=== PATIENT | male | born 1940 | race Caucasian/White ===

== ENCOUNTER → 2017-09-17 15:37 | Outpatient (POV) | payer MEDICARE, SELFPAY | PROVIDERS: PCP Family Medicine | DX: Z00.00 Encounter for general adult medical examination without abnormal findings (principal) ==

== ENCOUNTER → 2017-10-01 13:54 | Outpatient (POV) | payer MEDICARE, SELFPAY | PROVIDERS: PCP Family Medicine | DX: Z00.00 Encounter for general adult medical examination without abnormal findings (principal) ==

== ENCOUNTER → 2017-11-12 14:53 | Outpatient (POV) | payer MEDICARE, SELFPAY | DX: Z00.00 Encounter for general adult medical examination without abnormal findings (principal) ==

== ENCOUNTER → 2018-07-15 13:06 | Outpatient (POV) | payer MEDICARE, SELFPAY | DX: Z00.00 Encounter for general adult medical examination without abnormal findings (principal) ==

== ENCOUNTER → 2018-11-25 13:09 | Outpatient (POV) | payer MEDICARE, SELFPAY | DX: Z00.00 Encounter for general adult medical examination without abnormal findings (principal) ==

== ENCOUNTER → 2019-03-24 13:25 | Outpatient (POV) | payer MEDICARE, SELFPAY | DX: Z00.00 Encounter for general adult medical examination without abnormal findings (principal) ==

== ENCOUNTER → 2019-07-28 13:56 | Outpatient (POV) | payer MEDICARE, SELFPAY | DX: Z00.00 Encounter for general adult medical examination without abnormal findings (principal) ==

== ENCOUNTER → 2020-02-02 14:00 | Outpatient (POV) | payer MEDICARE, SELFPAY | PROVIDERS: PCP Family Medicine | DX: Z00.00 Encounter for general adult medical examination without abnormal findings (principal) ==

== ENCOUNTER → 2020-06-14 13:19 | Outpatient (POV) | payer MEDICARE, SELFPAY | DX: Z00.00 Encounter for general adult medical examination without abnormal findings (principal) ==

== ENCOUNTER → 2020-07-20 09:02 | Outpatient (CLI) | payer MEDICARE, SELFPAY ==
--- NOTE | 2020-07-20 09:12 | CT_ITS ---
PROCEDURE: CT CHEST W CON CLINCAL INDICATION: Lung lesion > seen on abd pelvis done at [facility] contacting dr for report COMPARISON: No exams were available for comparison TECHNIQUE: IV Contrast: 75ml Isovue 370 Axial images obtained with sagittal and coronal reformats. All CT scans at the facility use one or more dose reduction, viz: automated exposure control, ma/kV adjustment per patient size (including targeted exams where dose is matched to indication, i.e. head), or iterative reconstruction technique. FINDINGS: No mediastinal or hilar adenopathy. No mediastinal or mass. No evidence of aortic aneurysm dissection, or pulmonary embolus. Coronary artery calcifications present. 5 mm fissural nodule is present in the right minor fissure. 4 mm noncalcified nodules present in the right lower lobe anteriorly. There is a small bleb in the right lower lobe at 11 mm. There is a 3 mm noncalcified nodule within the lingula. An 8 mm noncalcified nodules present in the left lower lobe and a 4 mm noncalcified nodules present in the left lower lobe. These are both best seen on series 3, image 72. No effusions or infiltrates. There is a small enhancing lesion in the right hepatic lobe posteriorly measuring 8-9 mm segment 6 nonspecific. Please correlate with recent abdomen CT. 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 Differential would include inflammatory/infectious or neoplastic nodules. Three month follow-up suggested Dictated by: Byron Mathis MD 07/21/2020 10:22 Byron Mathis MD in [facility] 07/21/2020 10:22
== END ==
PROVIDERS: PCP Family Medicine; Visit Provider Family Medicine
DX: R91.1 Solitary pulmonary nodule (principal)
CPT/HCPCS: 71260; Q9967

== ENCOUNTER → 2020-08-02 13:42 | Outpatient (POV) | payer MEDICARE, SELFPAY | DX: Z00.00 Encounter for general adult medical examination without abnormal findings (principal) ==

== ENCOUNTER → 2020-11-24 10:04 | Outpatient (CLI) | payer MEDICARE, SELFPAY ==
[2020-11-24 10:38] LABS: Blood Urea Nitrogen 14 mg/dl (9-20); Estimated Glomerular Filt Rate 72 ml/min (>60); GFR (African American) 87 ML/MIN (>60)
--- NOTE | 2020-11-24 13:42 | CT_ITS ---
PROCEDURE INFORMATION: Exam: CT Chest Without and With Contrast; Diagnostic Exam date and time: 11/24/2020 1:42 PM Age: 80 years old Clinical indication: Screening exam; Other screening; Additional info: Lung nodule TECHNIQUE: Imaging protocol: Diagnostic computed tomography of the chest without and with contrast. Radiation optimization: All CT scans at this facility use at least one of these dose optimization techniques: automated exposure control; mA and/or kV adjustment per patient size (includes targeted exams where dose is matched to clinical indication); or iterative reconstruction. Contrast material: ISOVUE; Contrast volume: 75 ml; Contrast route: IV; COMPARISON: CT CHEST W CON 07/20/2020 9:44 AM FINDINGS: Lungs: Stable 8.3 mm nodule in the lateral left lower lobe.. 4.2 mm nodule in the left lower lobe has increased in size to 5.2 mm. Series 3, image 72. Again noted is enhancing lesion in the medial aspect of the right lower lobe. The blush measures 8 mm on today's study. Previously it measured 8.1 mm.. Pleural spaces: Unremarkable. No pneumothorax. No pleural effusion. Heart: Unremarkable. No cardiomegaly. No pericardial effusion. Aorta: Unremarkable. No aortic aneurysm. Lymph nodes: Unremarkable. No enlarged lymph nodes. Bones/joints: Unremarkable. No acute fracture. Soft tissues: Unremarkable. IMPRESSION: 1. Stable 8.3 mm nodule in the lateral left lower lobe.. For both low risk and high risk patients, consider CT Chest at 3 months, PET/CT, or biopsy. (Reference: Esa) References: Bhaveshhojannette H, et al. Guidelines for Management of Incidental Pulmonary Nodules Detected on CT Images: From the Fleischner Society 2017. Radiology. 2017;284(1):228-243. 2. 4.2 mm nodule in the left lower lobe has increased in size to 5.2 mm. Series 3, image 72. For patients at low risk (minimal or absent history of smoking and of other known risk factors), no routine follow-up is indicated. For patients at high risk (history of smoking or of other known risk factors), consider optional CT Chest at 12 months. (Reference: Bhaveshhojannette) References: Bhaveshhojannette H, et al. Guidelines for Management of Incidental Pulmonary Nodules Detected on CT Images: From the Fleischner Society 2017. Radiology. 2017;284(1):228-243. 3. Again noted is enhancing lesion in the medial aspect of the right lower lobe. The blush measures 8 mm on today's study. Previously it measured 8.1 mm.. This may represent hemangioma. Recommend liver MRI
== END ==
PROVIDERS: PCP Family Medicine; Visit Provider Thoracic Surgery (Cardiothoracic Vascular Surgery)
DX: R91.8 Other nonspecific abnormal finding of lung field (principal)
CPT/HCPCS: 36415; 71270; 82565; 84520; Q9967

== ENCOUNTER → 2020-11-29 12:57 | Outpatient (POV) | payer MEDICARE, SELFPAY | DX: Z00.00 Encounter for general adult medical examination without abnormal findings (principal) ==

== ENCOUNTER → 2021-06-11 12:29 | Outpatient (CLI) | payer MEDICARE, SELFPAY ==
[2021-06-11 13:10] LABS: Blood Urea Nitrogen 17 mg/dl (9-20); Estimated Glomerular Filt Rate 72 ml/min (>60); GFR (African American) 87 ML/MIN (>60)
--- NOTE | 2021-06-11 13:22 | CT_ITS ---
PROCEDURE INFORMATION: Exam: CT Chest Without and With Contrast; Diagnostic Exam date and time: 06/11/2021 1:22 PM Age: 80 years old Clinical indication: Mass, lump, or swelling in the chest; Additional info: Lung nodules f/u TECHNIQUE: Imaging protocol: Diagnostic computed tomography of the chest without and with contrast. Radiation optimization: All CT scans at this facility use at least one of these dose optimization techniques: automated exposure control; mA and/or kV adjustment per patient size (includes targeted exams where dose is matched to clinical indication); or iterative reconstruction. Contrast material: ISOVUE; Contrast volume: 75 ml; Contrast route: IV; COMPARISON: CT CHEST WO/W CON 11/24/2020 2:39 PM FINDINGS: Thyroid: Thyroid appears unremarkable. Trachea: Patent. Bronchial tree: Patent. Lungs: No acute interstitial or airspace disease. Stable scattered benign lung cysts are appreciated. Pulmonary nodules as follows: -Stable 7 mm perifissural nodule (abutting/within the right minor fissure on image 44 series 5 and image 25 series 605). This is compatible with a benign intrapulmonary lymph node and no follow-up is warranted. -Stable 6 mm nodule in the right lower lobe (image 58 series 5). Please note that this nodule was only partially visualized in the prior exam and was slightly obscured by motion. -Stable 4 mm nodule in the right lower lobe (image 37 series 5). -Increase in size of a left upper lobe nodule (image 53 series 5), now measuring 5 mm (previously 3.5 mm). -Stable 9 mm nodule in the left lower lobe (image 68 series 5). -Stable 5 mm nodule in the left lower lobe (image 68 series 5). -Increase in size of a left lower lobe nodule (image 61 series 5) now measuring 5.6 mm (previously 4.8 mm). Pleural spaces: Unremarkable. No pneumothorax. No pleural effusion. Heart: There is mild atherosclerotic calcification of the coronary arteries. Heart is of normal size and morphology. No pericardial thickening or effusion. Esophagus: Courses normally through the posterior mediastinum. Pulmonary arteries: Normal in course and caliber. Aorta: The aorta demonstrates mild atherosclerotic calcification. No acute pathology in the aorta. Lymph nodes: No concerning mediastinal, hilar, or axillary adenopathy by CT size criteria. Liver: Stable 9 mm hyperenhancing lesion in the right hepatic lobe (image 86 series 5). Bones/joints: No acute skeletal pathology. Moderate multilevel degenerative changes of the spine, as manifested by multilevel anterior osteophytes and multilevel decrease in intervertebral disc space. Soft tissues: No acute body wall soft tissue findings. Other findings: The visualized intra-abdominal structures demonstrate no acute findings. IMPRESSION: 1. INCREASE IN SIZE OF 2 PULMONARY NODULES, 1 IN THE LEFT UPPER LOBE AND THE OTHER IN THE LEFT LOWER LOBE. REMAINDER OF THE PULMONARY NODULES ARE ESSENTIALLY STABLE. PLEASE REVIEW ABOVE FOR DETAILS ON EACH NODULE. - For patients at low risk (minimal or absent history of smoking and of other known risk factors), recommend CT Chest at 3-6 months, then consider CT Chest at 18-24 months. For patients at high risk (history of smoking or of other known risk factors), recommend CT Chest at 3-6 months, then CT Chest at 18-24 months. (Reference: Esa) 2. STABLE 9 MM LESION IN THE RIGHT HEPATIC LOBE, FAVORING A FLASH FILLING HEMANGIOMA. CONSIDER CORRELATION WITH ULTRASOUND OR DEDICATED LIVER PROTOCOL CT OR MRI IF CLINICALLY WARRANTED. COMMENTS: For future follow-up of pulmonary nodules, if there is no other clinica
== END ==
PROVIDERS: PCP Family Medicine; Visit Provider Thoracic Surgery (Cardiothoracic Vascular Surgery)
DX: R91.8 Other nonspecific abnormal finding of lung field (principal)
CPT/HCPCS: 36415; 71270; 82565; 84520; Q9967

== ENCOUNTER → 2021-11-29 09:21 | Outpatient (CLI) | payer MEDICARE, SELFPAY ==
--- NOTE | 2021-11-29 09:27 | CT_ITS ---
FINAL REPORT TECHNIQUE: Thin section axial images were obtained through the chest before and after intravenous contrast. Reconstruction images were obtained from the axial data. Exam was performed using dose reduction technique. CLINICAL HISTORY: ABN PAIN/ WEIGHT LOSS, patient states this is a f/u for nodules COMPARISON: 06/11/2021, 11/24/2020 FINDINGS: There is no axillary, mediastinal, or hilar lymphadenopathy. There is no pleural or pericardial effusion. 2 left lower lobe nodules, seen on image 72, are stable. The larger of the 2 measures 8 mm. A 5 mm nodule in the medial left lower lobe on image 66 is also unchanged. A less than 5 mm right lower lobe pulmonary nodule on image 63 is stable. There are no new nodules. There is no consolidation. Evaluation of the upper abdomen reveals a stable small hyperenhancing lesion in the medial right lobe of the liver. There is no acute abnormality. No acute osseous abnormality is identified. IMPRESSION: Stable bilateral pulmonary nodules. These have been stable for approximately one year. Continued follow-up is recommended to ensure stability for 2 years. Central follow-up exam in one year. Stable small hyperenhancing liver lesion. Authenticated by Agata Jang MD on 11/29/2021 12:01:37 PM [facility]
[2021-11-29 10:05] LABS: Blood Urea Nitrogen 15 mg/dl (9-20); Estimated Glomerular Filt Rate 81 ml/min (>60); GFR (African American) 98 ML/MIN (>60)
== END ==
PROVIDERS: PCP Family Medicine; Visit Provider Thoracic Surgery (Cardiothoracic Vascular Surgery)
DX: R91.8 Other nonspecific abnormal finding of lung field (principal)
CPT/HCPCS: 36415; 71270; 82565; 84520; Q9967

== ENCOUNTER → 2022-05-01 14:34 | Outpatient (CLI) | payer MEDICARE, SELFPAY ==
--- NOTE | 2022-05-01 14:38 | XR_ITS ---
FINAL REPORT CLINICAL HISTORY: ACUTE COUGH FINDINGS: TWO-VIEW CHEST The heart size is normal. The mediastinum is normal. There is right base opacity worrisome for pneumonia. There is no pneumothorax. IMPRESSION: Right base opacity worrisome for pneumonia. Reviewed, Interpreted and Dictated by Arcenio Funes III, MD Transcribed by Nathalie Guerrero Authenticated and [facility]
== END ==
PROVIDERS: PCP Internal Medicine Adolescent Medicine; Visit Provider Nurse Practitioner Family
DX: R05.1 Acute cough (principal)
CPT/HCPCS: 71046

== ENCOUNTER → 2022-11-27 12:37 | Outpatient (CLI) | payer MEDICARE, SELFPAY ==
--- NOTE | 2022-11-27 12:57 | CT_ITS ---
FINAL REPORT TECHNIQUE: The patient was injected with IV contrast. Axial images were obtained of the chest by computed tomography. Precontrast images were also obtained. This study was performed with techniques to keep radiation doses as low as reasonably achievable (ALARA). Individualized dose reduction techniques using automated exposure control or adjustment of mA and/or kV according to the patient's size were employed. CLINICAL HISTORY: LUNG NODULE COMPARISON: 11/29/2021 FINDINGS: CT OF THE CHEST WITH AND WITHOUT CONTRAST: Small mediastinal and axillary nodes without adenopathy. There is no hilar adenopathy. Heart size is normal. There is no pericardial or pleural effusion identified. Again noted are multiple bilateral pulmonary nodules, largest measuring 8 mm in the lateral left lower lobe. No new mass or nodule identified. Limited images of the upper abdomen demonstrate a stable small enhancing focus posterior hepatic lobe again noted. IMPRESSION: Stable bilateral pulmonary nodules with no new mass or nodule identified. Reviewed, Interpreted and Dictated by Arcenio Funes III, MD Transcribed by Aide Mcgowan Authenticated and [facility]
[2022-11-27 13:31] LABS: Blood Urea Nitrogen 14 mg/dl (9-20); Estimated Glomerular Filt Rate 93 ml/min (>60); GFR (African American) 112 ML/MIN (>60)
== END ==
PROVIDERS: PCP Internal Medicine Adolescent Medicine; Visit Provider Thoracic Surgery (Cardiothoracic Vascular Surgery)
DX: R91.1 Solitary pulmonary nodule (principal)
CPT/HCPCS: 36415; 71270; 82565; 84520; Q9967

== ENCOUNTER 2024-01-20 14:25 | Outpatient (POV) | payer MEDICARE, SELFPAY | END 2024-01-20 23:59 | disposition home or self-care (01) | LOC: SC 14:25 | PROVIDERS: PCP Internal Medicine Adolescent Medicine; Visit Provider Dermatology | DX: Z00.00 Encounter for general adult medical examination without abnormal findings (principal) ==

== ENCOUNTER 2024-06-21 09:38 | Outpatient (CLI) | payer MEDICARE, SELFPAY ==
--- NOTE | 2024-06-21 09:43 | CT_ITS ---
FINAL REPORT TECHNIQUE: Axial images through the chest were performed by computed tomography. This study was performed with techniques to keep radiation doses as low as reasonably achievable, (ALARA). Individualized dose reduction techniques using automated exposure control or adjustment of mA and/or kV according to the patient's size were employed. CLINICAL HISTORY: LUNG NODULES COMPARISON: 11/27/2022, dating back to 07/20/2020 FINDINGS: CT CHEST WITH AND WITHOUT CONTRAST: CT examination was performed without and with the administration of intravenous contrast. There is no hilar or mediastinal adenopathy noted. No axillary adenopathy is present. No pleural or pericardial effusions are noted. There is an 8 mm left lower lobe nodule seen on image #77 of series 2, stable since 2022. There are a few other tiny 4 mm or less in size nodules, stable. There is an ovoid right lower lobe nodule, 4 mm in size, also stable and best seen on image #68. Views of the upper abdomen are unremarkable. IMPRESSION: Stable pulmonary nodules since the prior CT of July 2020, with no new masses or nodules identified. No follow-up is required at this time. Reviewed, Interpreted and Dictated by Holger Jurado MD Transcribed by Tiarra Mccall Authenticated and [facility]
[2024-06-21 10:13] LABS: Blood Urea Nitrogen 14 mg/dl (9-20); Estimated Glomerular Filt Rate 81 ml/min (>60); GFR (African American) 98 ML/MIN (>60)
[2024-06-21] MEDS: IOPAMIDOL-370 (76%);100ML BOTTLE 75 ML IV (10:56)
[2024-06-21] MEDS: SODIUM CHLORIDE 0.9% 10ML SYR (RAD ONLY) 10 ML IV (10:56)
== END 2024-06-21 23:59 | disposition home or self-care (01) ==
LOC: RAD 09:39
PROVIDERS: PCP Internal Medicine Adolescent Medicine; Visit Provider Nurse Practitioner Family
DX: R91.8 Other nonspecific abnormal finding of lung field (principal)
CPT/HCPCS: 36415; 71270; 82565; 84520; Q9967